=== PATIENT | female | born 1945 | race Caucasian/White ===

== ENCOUNTER → 2016-05-30 | Outpatient (CLI) | payer MEDICARE ==
[~2016-05-30] MED LIST: CALC-80 PO; CHOL10003 PO; LETR2.5T4 PO; MULT1CAP27 PO
--- NOTE | 2016-05-30 10:19 | Diagnostic Imaging Report ---
Examination: DEXA scan. Indication: Osteopenia Technique: Bone mineral density estimated based on dual energy radiography over the lumbar spine and femoral necks, was performed. Findings: The lumbar spine T-score is -0.9. This is 8% decreased density measurement compared to 2011 exam. T score over the left femoral neck is -1.5 and on the right side is -1.6. This is 5% decreased density measurement compared to 2011. Impression: Osteopenia.. Dictated by: Dictated on workstation # [id number]
== END ==
LOC: RAD 09:03
PROVIDERS: ATTEND Internal Medicine Hematology & Oncology
DX: M85.88 Other specified disorders of bone density and structure, other site (principal); Z51.81 Encounter for therapeutic drug level monitoring; Z79.811 Long term (current) use of aromatase inhibitors; Z90.722 Acquired absence of ovaries, bilateral
CPT/HCPCS: 77080

== ENCOUNTER → 2016-10-01 | Outpatient (CLI) | payer MEDICARE | LOC: FS 10:25 | PROVIDERS: ATTEND Internal Medicine Hematology & Oncology | DX: C50.511 Malignant neoplasm of lower-outer quadrant of right female breast (principal); C54.1 Malignant neoplasm of endometrium; Z17.0 Estrogen receptor positive status [ER+]; R74.8 Abnormal levels of other serum enzymes; Z90.11 Acquired absence of right breast and nipple; Z90.710 Acquired absence of both cervix and uterus; Z79.811 Long term (current) use of aromatase inhibitors; Z92.21 Personal history of antineoplastic chemotherapy; Z92.3 Personal history of irradiation | CPT/HCPCS: 99213 ==

== ENCOUNTER → 2017-04-08 | Outpatient (CLI) | payer MEDICARE ==
[2017-04-08 10:39] LABS: BASOPHILS % (AUTO) 1 % (0-10); EOSINOPHILS # (AUTO) 0.1 10^3/uL (0.0-0.3); EOSINOPHILS % (AUTO) 2 % (0-10); LYMPHOCYTES # (AUTO) 1.2 X 10^3 (1.0-4.0); LYMPHOCYTES % (AUTO) 33 % (12-44); MEAN CORPUSCULAR HEMOGLOBIN 31 PG (25-34); MEAN CORPUSCULAR HGB CONC 34 G/DL (32-36); MEAN CORPUSCULAR VOLUME 93 FL (80-99); MEAN PLATELET VOLUME 10.4 FL (7.4-10.4); MONOCYTES # (AUTO) 0.3 X 10^3 (0.0-1.0); MONOCYTES % (AUTO) 8 % (0-12); NEUTROPHILS # (AUTO) 2.1 X 10^3 (1.8-7.8); NEUTROPHILS % (AUTO) 57 % (42-75); PLATELET COUNT 148 10^3/uL (130-400); RED BLOOD COUNT 4.32 10^6/uL (4.35-5.85); RED CELL DISTRIBUTION WIDTH 12.5 % (10.0-14.5); WHITE BLOOD COUNT 3.7 10^3/uL (4.3-11.0)
[2017-04-08 10:56] LABS: ALANINE AMINOTRANSFERASE 21 U/L (0-55); ALBUMIN 3.8 GM/DL (3.2-4.5); ANION GAP 6 MMOL/L (5-14); ASPARTATE AMINO TRANSFERASE 17 U/L (5-34); BILIRUBIN,TOTAL 0.6 MG/DL (0.1-1.0); BLOOD UREA NITROGEN 27 MG/DL (7-18); BUN/CREATININE RATIO 37; CALCIUM 9.4 MG/DL (8.5-10.1); CARBON DIOXIDE 29 MMOL/L (21-32); CHLORIDE 108 MMOL/L (98-107); CREATININE SERUM 0.73 MG/DL (0.60-1.30); GFR ESTIMATED > 60; GLUCOSE 126 MG/DL (70-105); POTASSIUM 4.1 MMOL/L (3.6-5.0); SODIUM 143 MMOL/L (135-145); TOTAL PROTEIN 6.6 GM/DL (6.4-8.2)
== END ==
LOC: ONC 10:11
PROVIDERS: ATTEND Internal Medicine Hematology & Oncology
DX: C54.1 Malignant neoplasm of endometrium (principal)
CPT/HCPCS: 36415; 80053; 82306; 85025; 86304; 99213

== ENCOUNTER 2018-03-31 11:32 | Outpatient (RCR) | payer OTHER ==
[2018-03-31 11:37] LABS: BASOPHILS % (AUTO) 0 % (0-10); EOSINOPHILS # (AUTO) 0.1 10^3/uL (0.0-0.3); EOSINOPHILS % (AUTO) 2 % (0-10); HEMATOCRIT 41 % (35-52); HEMOGLOBIN 13.8 G/DL (11.5-16.0); LYMPHOCYTES # (AUTO) 1.6 X 10^3 (1.0-4.0); LYMPHOCYTES % (AUTO) 34 % (12-44); MEAN CORPUSCULAR HEMOGLOBIN 31 PG (25-34); MEAN CORPUSCULAR HGB CONC 34 G/DL (32-36); MEAN CORPUSCULAR VOLUME 92 FL (80-99); MEAN PLATELET VOLUME 10.2 FL (7.4-10.4); MONOCYTES # (AUTO) 0.5 X 10^3 (0.0-1.0); MONOCYTES % (AUTO) 11 % (0-12); NEUTROPHILS # (AUTO) 2.5 X 10^3 (1.8-7.8); NEUTROPHILS % (AUTO) 54 % (42-75); PLATELET COUNT 158 10^3/uL (130-400); RED CELL DISTRIBUTION WIDTH 12.8 % (10.0-14.5); WHITE BLOOD COUNT 4.7 10^3/uL (4.3-11.0)
[2018-03-31 11:58] LABS: ALANINE AMINOTRANSFERASE 22 U/L (0-55); ALBUMIN 4.2 GM/DL (3.2-4.5); ALKALINE PHOSPHATASE 91 U/L (40-136); BILIRUBIN,TOTAL 0.4 MG/DL (0.1-1.0); BUN/CREATININE RATIO 29; CARBON DIOXIDE 26 MMOL/L (21-32); CHLORIDE 106 MMOL/L (98-107); CREATININE SERUM 0.77 MG/DL (0.60-1.30); GFR ESTIMATED > 60; GLUCOSE 129 MG/DL (70-105); POTASSIUM 3.9 MMOL/L (3.6-5.0); SODIUM 142 MMOL/L (135-145); TOTAL PROTEIN 7.2 GM/DL (6.4-8.2)
== END 2018-06-29 | disposition home or self-care (01) ==
LOC: ONC 11:32
PROVIDERS: ATTEND Internal Medicine Hematology & Oncology
DX: C54.1 Malignant neoplasm of endometrium (principal); C50.511 Malignant neoplasm of lower-outer quadrant of right female breast; M85.88 Other specified disorders of bone density and structure, other site; R74.8 Abnormal levels of other serum enzymes; Z17.0 Estrogen receptor positive status [ER+]; Z90.11 Acquired absence of right breast and nipple; Z90.710 Acquired absence of both cervix and uterus; Z79.811 Long term (current) use of aromatase inhibitors; Z92.21 Personal history of antineoplastic chemotherapy; Z92.3 Personal history of irradiation
CPT/HCPCS: 36415; 80053; 85025; 99213

== ENCOUNTER 2018-10-08 10:34 | Outpatient (RCR) | payer OTHER ==
[2018-10-08 10:49] LABS: BASOPHILS % (AUTO) 0 % (0-10); EOSINOPHILS # (AUTO) 0.1 10^3/uL (0.0-0.3); EOSINOPHILS % (AUTO) 2 % (0-10); HEMATOCRIT 42 % (35-52); HEMOGLOBIN 14.3 G/DL (11.5-16.0); LYMPHOCYTES # (AUTO) 1.7 X 10^3 (1.0-4.0); LYMPHOCYTES % (AUTO) 37 % (12-44); MEAN CORPUSCULAR HEMOGLOBIN 31 PG (25-34); MEAN CORPUSCULAR HGB CONC 35 G/DL (32-36); MEAN CORPUSCULAR VOLUME 90 FL (80-99); MEAN PLATELET VOLUME 10.6 FL (7.4-10.4); MONOCYTES # (AUTO) 0.4 X 10^3 (0.0-1.0); MONOCYTES % (AUTO) 8 % (0-12); NEUTROPHILS # (AUTO) 2.4 X 10^3 (1.8-7.8); NEUTROPHILS % (AUTO) 53 % (42-75); PLATELET COUNT 153 10^3/uL (130-400); RED CELL DISTRIBUTION WIDTH 12.8 % (10.0-14.5); WHITE BLOOD COUNT 4.6 10^3/uL (4.3-11.0)
[2018-10-08 11:09] LABS: ALANINE AMINOTRANSFERASE 22 U/L (0-55); ALBUMIN 4.2 GM/DL (3.2-4.5); ALKALINE PHOSPHATASE 110 U/L (40-136); BILIRUBIN,TOTAL 0.4 MG/DL (0.1-1.0); BUN/CREATININE RATIO 29; CALCIUM 9.7 MG/DL (8.5-10.1); CARBON DIOXIDE 24 MMOL/L (21-32); CHLORIDE 108 MMOL/L (98-107); CREATININE SERUM 0.78 MG/DL (0.60-1.30); GFR ESTIMATED > 60; GLUCOSE 113 MG/DL (70-105); POTASSIUM 3.9 MMOL/L (3.6-5.0); SODIUM 141 MMOL/L (135-145); TOTAL PROTEIN 6.8 GM/DL (6.4-8.2)
== END 2019-01-06 | disposition home or self-care (01) ==
LOC: ONC 10:34
PROVIDERS: ATTEND Internal Medicine Hematology & Oncology
DX: C54.1 Malignant neoplasm of endometrium (principal); C50.511 Malignant neoplasm of lower-outer quadrant of right female breast; M85.88 Other specified disorders of bone density and structure, other site; R74.8 Abnormal levels of other serum enzymes; Z17.0 Estrogen receptor positive status [ER+]; Z90.11 Acquired absence of right breast and nipple; Z90.710 Acquired absence of both cervix and uterus; Z79.811 Long term (current) use of aromatase inhibitors; Z92.21 Personal history of antineoplastic chemotherapy; Z92.3 Personal history of irradiation
CPT/HCPCS: 36415; 80053; 82306; 85025; 86304; 99213

== ENCOUNTER → 2018-10-08 | Outpatient (CLI) | payer OTHER ==
--- NOTE | 2018-10-08 20:44 | Diagnostic Imaging Report ---
INDICATION: Routine screening. Comparison is made with prior mammograms from 10/07/2017 and 05/21/2016. Unilateral left 2-D and 3-D screening mammography was performed with a Computer Aided Detection (CAD) system. FINDINGS: Scattered fibroglandular densities are identified bilaterally. There are benign calcifications on the left. No mass or malignant-appearing microcalcifications are seen. Left axilla is unremarkable. IMPRESSION: No mammographic features suspicious for malignancy are identified. ACR BI-RADS Category 2: Benign findings. Result letter will be mailed to the patient. Note: At least 10% of breast cancer is not imaged by mammography. Dictated by: Dictated on workstation # [id number]
== END ==
LOC: RAD 11:39
PROVIDERS: ATTEND Nurse Practitioner Adult Health
DX: Z12.31 Encounter for screening mammogram for malignant neoplasm of breast (principal); Z51.81 Encounter for therapeutic drug level monitoring; C50.511 Malignant neoplasm of lower-outer quadrant of right female breast; M85.80 Other specified disorders of bone density and structure, unspecified site; Z79.811 Long term (current) use of aromatase inhibitors; Z78.0 Asymptomatic menopausal state

== ENCOUNTER → 2018-10-20 | Outpatient (CLI) | payer OTHER ==
--- NOTE | 2018-10-20 11:55 | Diagnostic Imaging Report ---
INDICATION: Screening for osteoporosis. COMPARISON: 05/30/2016 FINDING: The bone mineral density of the hips and spine was measured. The T score for the spine is -0.8. On the prior exam, the T score was -0.9. This value is within normal limits. The T score for the left hip is -1.4 and for the right hip -1.8. On the prior exam, the respective T scores were -1.5 and -1.6. These values still fall within the range of osteopenia. The T scores for the femoral necks is -1.6. The T scores for the femoral necks were not calculated on the prior exam. AP Spine L1-L4: [BMD (g/cm2): 1.104] [T-Score: -0.8] [Z-Score: 0.1] [BMD Previous: 1.104] [BMD % Change: 0.5] LT Hip Neck: [BMD (g/cm2): 0.816] [T-Score: -1.6] [Z-Score: -0.2] LT Hip Total: [BMD (g/cm2):0.836] [T-Score:-1.4] [Z-Score: -0.3] [BMD Previous: 0.819] [BMD % Change: 2.1] RT Hip Neck: [BMD (g/cm2):0.811] [T-Score:-1.6] [Z-Score:-0.3] RT Hip Total: [BMD (g/cm2):0.782] [T-score:-1.8] [Z-Score:-0.7] [BMD Previous:0.805] [BMD % Change:-2.9] *Indicates significant change from prior examination based on 95% confidence level. World Health Organization criteria for BMD interpretation classify patients as Normal (T-score at or above -1.0), Osteopenic (T-score between -1.0 and -2.5) or Osteoporotic (T-score at or below -2.5). LIMITATIONS AND MODIFICATION: None. FRACTURE RISK (FRAX SCORE): The ten year probability of (%): Major Osteoporotic Fracture: [14.5] Hip Fracture: [3.3] IMPRESSION: 1. When compared to the previous study, there does not appear to have been any significant change. There has been a slight increase in the bone mineral density of the spine and the left hip and a slight decrease in the bone mineral density of the right hip. The T score for the spine is still within normal limits and the T scores for the hips remain within the range of osteopenia. 2. There is also osteopenia of both femoral necks. 3. See below National Osteoporosis Foundation guidelines on when to potentially initiate pharmacologic therapy. Based on the National Osteoporosis Foundation Guidelines, pharmacologic treatment should be initiated in any of the following, unless clinical conditions suggest otherwise: * Any patient with prior fragility fracture of the hip or vertebrae. A spine fracture indicates 5X risk for subsequent spine fracture and 2X risk for subsequent hip fracture. * Osteoporosis (T-score <-2.5). * Postmenopausal women and men age 50 and older with low bone mass/osteopenia (T-score between -1.0 and -2.5) by DXA and 10-year major osteoporotic fracture greater than 20% or a 10-year probability of hip fracture greater than 3%. These fracture risks are supplied above in the FRAX score, if applicable. * Clinician judgement and/or patient preferences may indicate treatment for people with 10-year fracture probabilities above or below these levels. Dictated by: Dictated on workstation # [id number]
== END ==
LOC: RAD 09:52
PROVIDERS: ATTEND Nurse Practitioner Adult Health
DX: Z13.820 Encounter for screening for osteoporosis (principal); Z12.31 Encounter for screening mammogram for malignant neoplasm of breast; Z51.81 Encounter for therapeutic drug level monitoring; C50.919 Malignant neoplasm of unspecified site of unspecified female breast; M85.89 Other specified disorders of bone density and structure, multiple sites; Z78.0 Asymptomatic menopausal state; Z79.811 Long term (current) use of aromatase inhibitors
CPT/HCPCS: 77080

== ENCOUNTER 2019-04-19 13:11 | Outpatient (RCR) | payer OTHER ==
[2019-04-19 13:41] LABS: BASOPHILS % (AUTO) 1 % (0-10); EOSINOPHILS # (AUTO) 0.1 10^3/uL (0.0-0.3); EOSINOPHILS % (AUTO) 1 % (0-10); HEMATOCRIT 43 % (35-52); HEMOGLOBIN 14.2 G/DL (11.5-16.0); LYMPHOCYTES # (AUTO) 1.6 X 10^3 (1.0-4.0); LYMPHOCYTES % (AUTO) 37 % (12-44); MEAN CORPUSCULAR HEMOGLOBIN 30 PG (25-34); MEAN CORPUSCULAR HGB CONC 33 G/DL (32-36); MEAN CORPUSCULAR VOLUME 91 FL (80-99); MEAN PLATELET VOLUME 10.4 FL (7.4-10.4); MONOCYTES # (AUTO) 0.4 X 10^3 (0.0-1.0); MONOCYTES % (AUTO) 9 % (0-12); NEUTROPHILS # (AUTO) 2.3 X 10^3 (1.8-7.8); NEUTROPHILS % (AUTO) 53 % (42-75); PLATELET COUNT 152 10^3/uL (130-400); RED CELL DISTRIBUTION WIDTH 13.2 % (10.0-14.5); WHITE BLOOD COUNT 4.4 10^3/uL (4.3-11.0)
[2019-04-19 14:01] LABS: ALBUMIN 4.4 GM/DL (3.2-4.5); BILIRUBIN,TOTAL 0.5 MG/DL (0.1-1.0); CALCIUM 9.9 MG/DL (8.5-10.1); CREATININE SERUM 0.91 MG/DL (0.60-1.30); POTASSIUM 3.8 MMOL/L (3.6-5.0); TOTAL PROTEIN 7.1 GM/DL (6.4-8.2)
== END 2019-07-18 | disposition home or self-care (01) ==
LOC: ONC 13:11
PROVIDERS: ATTEND Internal Medicine Hematology & Oncology
DX: C54.1 Malignant neoplasm of endometrium (principal); C50.511 Malignant neoplasm of lower-outer quadrant of right female breast; M85.88 Other specified disorders of bone density and structure, other site; R74.8 Abnormal levels of other serum enzymes; Z17.0 Estrogen receptor positive status [ER+]; Z90.11 Acquired absence of right breast and nipple; Z90.710 Acquired absence of both cervix and uterus; Z79.811 Long term (current) use of aromatase inhibitors; Z92.21 Personal history of antineoplastic chemotherapy; Z92.3 Personal history of irradiation
CPT/HCPCS: 80053; 85025; 86304; 99213

== ENCOUNTER 2019-06-18 17:16 | Emergency (ER) | payer MEDICARE, OTHER ==
[~2019-06-18] VITALS: Ht 172.7 cm; Wt 94.4 kg
--- NOTE | 2019-06-18 17:32 | ED Back Pain ---
General Stated Complaint: BACK PAIN Source of Information: Patient Exam Limitations: No Limitations (FLAKO BAINS DO) History of Present Illness Date Seen by Provider: Jun 18, 2019 Time Seen by Provider: 17:27 Initial Comments 73-year-old female presents with right lower back/flank pain. She reports the pain radiates across her abdomen and into her groin. She also reports that she is nauseated, feels dizzy. That she's been having issues with her "kidneys" for about 3 weeks having difficulty urinating and wanted May shower kidney stone at that time. She reports she was walking to her neighbors when the symptoms started today. She also has a cough that she reports his been going on for about 2 weeks. She does not report of any fever. She does not have any diarrhea. She denies any shortness of breath (FLAKO BAINS DO) Allergies and Home Medications Allergies Coded Allergies: No Known Drug Allergies (Unverified , 08/02/10) Home Medications Calcium Carbonate/Vitamin D3 1 Each Tablet, 1 EACH PO BID, (Reported) Cholecalciferol 1,000 Unit Tablet, 1,000 UNIT PO DAILY, (Reported) Letrozole 2.5 Mg Tablet, 1 EACH PO HS, (Reported) Multivitamins 1 Each Capsule, 1 EACH PO DAILY, (Reported) Patient Home Medication List Home Medication List Reviewed: Yes (FLAKO BAINS DO) Review of Systems Constitutional: No chills; dizziness; No fever EENTM: no symptoms reported Respiratory: cough Cardiovascular: No chest pain Gastrointestinal: abdominal pain, nausea Genitourinary: see HPI Musculoskeletal: see HPI, back pain Skin: see HPI Psychiatric/Neurological: See HPI (FLAKO BAINS DO) Past Fbrbtyh-Qlxpsy-Nwylfv Hx Past Med/Social Hx: Reviewed Nursing Past Med/Soc Hx (FLAKO BAINS DO) Patient Social History Recent Foreign Travel: No Contact w/Someone Who Travel: No (FLAKO BAINS DO) Immunizations Up To Date Date of Influenza Vaccine: Mar 28, 2011 (FLAKO BAINS DO) Past Medical History Reproductive Disorders: No (FLAKO BAINS DO) Physical Exam Vital Signs Vital Signs - First Documented 06/18/19 17:20 Temp 36.8 Pulse 100 Resp 18 B/P (MAP) 175/92 (119) Pulse Ox 98 O2 Delivery Room Air (IGNACIO STOUT JR, MD) Vital Signs Capillary Refill : (BAINS,FLAKO L DO) Height, Weight, BMI Height: '" Weight: lbs. oz. 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6-5.0 MMOL/L Chloride Level 105 98-107 MMOL/L Carbon Dioxide Level 26 21-32 MMOL/L Anion Gap 12 5-14 MMOL/L Blood Urea Nitrogen 26 H 7-18 MG/DL Creatinine 0.74 0.60-1.30 MG/DL Estimat Glomerular Filtration Rate > 60 BUN/Creatinine Ratio 35 Glucose Level 128 H 70-105 MG/DL Calcium Level 10.0 8.5-10.1 MG/DL Corrected Calcium 9.7 8.5-10.1 MG/DL Total Bilirubin 0.4 0.1-1.0 MG/DL Aspartate Amino Transf (AST/SGOT) 33 5-34 U/L Alanine Aminotransferase (ALT/SGPT) 42 0-55 U/L Alkaline Phosphatase 111 40-136 U/L Total Protein 7.0 6.4-8.2 GM/DL Albumin 4.4 3.2-4.5 GM/DL Urine Color BROWN H Urine Clarity CLOUDY Urine pH 5.0 5-9 Urine Specific [place] >1.030 1.016-1.022 Urine Protein 1+ H NEGATIVE Urine Glucose (UA) NEGATIVE NEGATIVE Urine Ketones NEGATIVE NEGATIVE Urine Nitrite NEGATIVE NEGATIVE Urine Bilirubin NEGATIVE NEGATIVE Urine Urobilinogen 0.2 < = 1.0 MG/DL Urine Leukocyte Esterase TRACE H NEGATIVE Urine RBC (Auto) 3+ H NEGATIVE Urine RBC >100 H /HPF Urine WBC 2-5 /HPF Urine Crystals NONE /LPF Urine Bacteria TRACE /HPF Urine Casts NONE /LPF Urine Mucus NEGATIVE /LPF Urine Culture Indicated NO (IGNACIO STOUT JR, MD) My Orders Orders - IGNACIO STOUT JR, MD Ns Iv 1000 Ml (Sodium Chloride 0.9%) (06/18/19 18:45) Ns Iv 1000 Ml (Sodium Chloride 0.9%) (06/18/19 18:33) (IGNACIO STOUT JR, MD) Medications Given in ED Current Medications Medications Dose Ordered Sig/Pablo Route Start Time Stop Time Status Last Admin Dose Admin Iohexol 100 ml ONCE ONCE IV 06/18/19 18:15 06/18/19 18:16 DC 06/18/19 18:19 100 ML Sodium Chloride 10 ml NEEDED PRN IV 06/18/19 18:15 06/18/19 18:19 10 ML Sodium Chloride 100 ml ONCE ONCE IV 06/18/19 18:15 06/18/19 18:16 DC 06/18/19 18:19 80 ML (IGNACIO STOUT JR, MD) Vital Signs/I&O 06/18/19 17:20 Temp 36.8 Pulse 100 Resp 18 B/P (MAP) 175/92 (119) Pulse Ox 98 O2 Delivery Room Air (IGNACIO STOUT JR, MD) Progress Progress Note : Time: 20:12 Progress Note Patient is relatively pain-free after a liter of IV fluids we'll go ahead and then send a strainer home with her watch her over the weekend will have her follow-up with her PCP on Friday to recheck urine and save any stone that she might collect. Return if any problems. (IGNACIO STOUT JR, MD) Departure Impression Primary Impression: Kidney stone Disposition: HOME, SELF-CARE Condition: Stable Departure-Patient Inst. Referrals: ABDULAZIZ TESFAYE MD (PCP/Family) Primary Care Physician Patient Instructions: Kidney Stones in Adults FLAKO BAINS DO Jun 18, 2019 17:32 IGNACIO STOUT JR, MD Jun 18, 2019 20:14
[2019-06-18 17:49] LABS: HEMOGLOBIN 13.8 G/DL (11.5-16.0); MEAN PLATELET VOLUME 10.3 FL (7.4-10.4); RED CELL DISTRIBUTION WIDTH 12.9 % (10.0-14.5)
[2019-06-18 18:07] LABS: ALANINE AMINOTRANSFERASE 42 U/L (0-55); ALBUMIN 4.4 GM/DL (3.2-4.5); ALKALINE PHOSPHATASE 111 U/L (40-136); BILIRUBIN,TOTAL 0.4 MG/DL (0.1-1.0); BUN/CREATININE RATIO 35; CARBON DIOXIDE 26 MMOL/L (21-32); CHLORIDE 105 MMOL/L (98-107); CREATININE SERUM 0.74 MG/DL (0.60-1.30); GFR ESTIMATED > 60; GLUCOSE 128 MG/DL (70-105); SODIUM 143 MMOL/L (135-145)
[2019-06-18] MEDS ORDERED: NS 100 ML (IVPB) BAG IV ONE (18:15)
[2019-06-18] MEDS ORDERED: IOHEXOL 350 MG/ML 100 ML (OMNIPAQUE 350) VIAL IV ONE (18:15)
[2019-06-18] MEDS ORDERED: CATHETER FLUSH 10 ML SYR IV PRN (18:15)
[2019-06-18] MEDS ORDERED: HOLD METFORMIN - RECEIVED CONTRAST 20 ML VIAL IV SCH (18:15)
[2019-06-18] MEDS ORDERED: NS IV 1000 ML 1,000 ML ONE (18:33)
--- NOTE | 2019-06-18 18:39 | Diagnostic Imaging Report ---
PROCEDURE: CT abdomen and pelvis with and without contrast. TECHNIQUE: Precontrast acquisitions were acquired through the abdomen and pelvis. Multiple contiguous axial images were obtained through the abdomen and pelvis after the administration of intravenous contrast. Auto Exposure Controls were utilized during the CT exam to meet ALARA standards for radiation dose reduction. INDICATION: Low back and groin pain with nausea and previously diagnosed ovarian and breast cancer. COMPARISON: Comparison is made to examination of 06/24/2013. FINDINGS: Similar to previous study, the right breast has been surgically removed. There is low density throughout the liver indicating steatosis. There is no evidence of gallbladder, pancreatic, adrenal gland, or splenic abnormality. Left kidney is also unremarkable in appearance apart from tiny nonobstructing calculus in the mid portion posteriorly. There is mild right hydronephrosis with an approximately 0.6 cm calculus in the proximal right ureter. No free fluid is seen within the abdomen or pelvis. There is no evidence of organized fluid collection. Small amount of gas is seen within the urinary bladder. This could be due to instrumentation, although clinical correlation is recommended. IMPRESSION: At least partially obstructing 0.6 cm calculus in the proximal right ureter with mild right hydronephrosis. Gas in the lumen of the bladder could be related to instrumentation or cystitis, and clinical correlation would be of value. Otherwise, no acute abnormality is detected. Dictated by: Dictated on workstation # [id number]
[2019-06-18 18:41] LABS: BILIRUBIN,URINE NEGATIVE (NEGATIVE); CLARITY,URINE CLOUDY; COLOR,URINE BROWN; GLUCOSE, URINE (UA) NEGATIVE (NEGATIVE); KETONES,URINE NEGATIVE (NEGATIVE); LEUKOCYTE ESTERASE ,URINE TRACE (NEGATIVE); NITRITE,URINE NEGATIVE (NEGATIVE); PROTEIN,URINE 1+ (NEGATIVE)
[2019-06-18 18:42] LABS: BACTERIA,URINE TRACE /HPF; RBC,URINE >100 /HPF
[2019-06-18] MEDS ORDERED: NS IV 1000 ML 1,000 ML IV SCH (18:45)
[2019-06-18 20:20] VITALS: BP 151/80
== END 2019-06-18 20:20 | disposition home or self-care (01) ==
LOC: EDUNIT# 17:16 → ER FS 17:17
DX: N13.2 Hydronephrosis with renal and ureteral calculous obstruction (principal)
CPT/HCPCS: 36415; 74178; 80053; 81000; 85027

== ENCOUNTER 2021-04-30 11:34 | Emergency (ER) | payer MEDICARE ==
[~2021-04-30] VITALS: Ht 172 cm; Wt 95.0 kg
[2021-04-30 11:57] VITALS: BP 175/94
[2021-04-30] MEDS ORDERED: ACETAMINOPHEN 500 MG TAB (TYLENOL) PO ONE (12:00)
--- NOTE | 2021-04-30 12:06 | ED Lower Extremity ---
General Chief Complaint: Lower Extremity Stated Complaint: FALL; RT HIP/LEG INJ Source: patient Exam Limitations: no limitations History of Present Illness Date Seen by Provider: Apr 30, 2021 Time Seen by Provider: 11:36 Initial Comments 75-year-old female with past medical history of breast cancer now in remission and arthritis coming in due to right leg pain. She was outside and tripped around 930 this morning landing on her right side and since then has had right posterior thigh pain that is constant, sharp, moderate, worse with walking. She has been able to walk. She did not hit her head or have loss of consciousness. She denies any neck or back pain. Has not taken any medications today including nothing for pain. Is otherwise denying any other acute complaints. Allergies and Home Medications Allergies Coded Allergies: No Known Drug Allergies (Unverified , 08/02/10) Patient Home Medication List Home Medication List Reviewed: Yes Calcium Carbonate/Vitamin D3 (Calcium 600 + D Caplet) 1 Each Tablet, 1 EACH PO BID, (Reported) Entered as Reported by: OSWALDO RUGGIERO on 09/19/11 1052 Cholecalciferol (Vitamin D) 1,000 Unit Tablet, 1,000 UNIT PO DAILY, (Reported) Entered as Reported by: OSWALDO RUGGIERO on 09/19/11 1052 Letrozole (Femara) 2.5 Mg Tablet, 1 EACH PO HS, (Reported) Entered as Reported by: OSWALDO RUGGIERO on 09/19/11 1052 Multivitamins (Multivitamins) 1 Each Capsule, 1 EACH PO DAILY, (Reported) Entered as Reported by: OSWALDO RUGGIERO on 09/19/11 1052 Review of Systems Constitutional: No chills EENTM: No blurred vision Respiratory: No cough Cardiovascular: No chest pain Gastrointestinal: No abdominal pain Genitourinary: no symptoms reported Musculoskeletal: joint pain Skin: no symptoms reported Psychiatric/Neurological: No Symptoms Reported All Other Systems Reviewed Negative Unless Noted: Yes Past Fgwmeux-Rujzrk-Tlxjci Hx Patient Social History Tobacco Use?: No Use of E-Cig and/or Vaping dev: No Substance use?: No Alcohol Use?: No Pt feels they are or have been: No Seasonal Allergies Seasonal Allergies: No Past Medical History Surgeries: Yes (R mastectomy) Breast, Hysterectomy Respiratory: No Cardiac: No Neurological: No Reproductive Disorders: No 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 oz. kg; 31.00 BMI Method: General Appearance: WD/WN, no apparent distress HEENT: PERRL/EOMI, normal ENT inspection, pharynx normal Neck: non-tender, full range of motion, supple, normal inspection Cardiovascular: regular rate, rhythm, no edema, no murmur Respiratory: chest non-tender, lungs clear, normal breath sounds, no res piratory distress, no accessory muscle use Gastrointestinal: normal bowel sounds, non tender, soft; No distended, No guarding, No rebound Hips: bilateral hip non-tender, bilateral hip normal inspection, bilateral hip normal range of motion, bilateral hip no evidence of injury Legs: left leg non-tender; bilateral leg normal inspection, bilateral leg normal range of motion, bilateral leg no evidence of injury; right leg bone tenderness, right leg soft tissue tenderness Knees: bilateral knee non-tender, bilateral knee normal inspection, bilateral knee normal range of motion, bilateral knee no evidence of injury Ankles: bilateral ankle non-tender, bilateral ankle normal inspection, bilateral ankle normal range of motion, bilateral ankle no evidence of injury Feet: bilateral foot non-tender, bilateral foot normal inspection, bilateral foot normal range of motion, bilateral foot no evidence of injury Neurologic/Tendon: normal sensation, normal motor functions, normal tendon functions 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 as tested, no motor/sensory deficits, alert, normal mood/affect, oriented x 3 Skin: normal color, warm/dry Lymphatic: no adenopathy Progress/Results/Core Measures Results/Orders My Orders Orders - ROSMERY GASTELUM MD Femur 2 View Right (04/30/21 11:59) Pelvis (Ap) (04/30/21 11:59) Acetaminophen Tablet (Tylenol Tablet) (04/30/21 12:00) Medications Given in ED Current Medications Medications Dose Ordered Sig/Pablo Route Start Time Stop Time Status Last Admin Dose Admin Acetaminophen 1,000 mg ONCE ONCE PO 04/30/21 12:00 04/30/21 12:01 DC 04/30/21 12:08 1,000 MG Vital Signs/I&O 04/30/21 11:57 Temp 36.5 Pulse 92 Resp 16 B/P (MAP) 175/94 (121) Pulse Ox 97 O2 Delivery Room Air Progress Progress Note : Progress Note 75-year-old female with above history coming in due to right thigh pain. ABCs were intact and vitals are stable on presentation. Physical exam with some soft tissue tenderness along her right posterior thigh without any deformity. She is able to ambulate and able to move her leg against gravity. Given Tylenol for pain control. We will get an x-ray of her pelvis as well as right femur. X-rays on my interpretation negative for any fracture or dislocation. Likely just soft tissue contusion. I believe the patient is stable for discharge with outpatient follow-up. She was sent home with strict return precautions. Diagnostic Imaging Diagonstic Imaging: Xray (pelvis and femur) [facility] [place] [place] NAME: KINJAL [facility] REC#: [id number] PT STATUS: REG ER : 1945 PHYSICIAN: ROSMERY GASTELUM MD ADMIT DATE: 04/30/21/ER FS Draft Date of Exam:04/30/21 PELVIS (AP) INDICATION: Right hip injury from a fall. AP view pelvis shows no fracture or dislocation. Soft tissue planes appear normal. IMPRESSION: Negative pelvis Dictated on workstation # [id number] Dict: 04/30/21 1226 Trans: 04/30/21 1227 [facility] [id number] Interpreted by: ROCIO BUCIO MD Electronically signed by: [facility] [place] [place] NAME: KINJAL [facility]CH[facility] REC#: [id number] PT STATUS: REG ER : 1945 PHYSICIAN: ROSMERY GASTELUM MD ADMIT DATE: 12/20/21/ER FS Draft Date of Exam:04/30/21 FEMUR 2 VIEW RIGHT INDICATION: Fall. Right hip and thigh pain COMPARISON: None. FINDINGS: Multiple radiographic views of the right femur were obtained and show no fractures, dislocations, or other acute bony abnormalities. Joint spaces are well maintained throughout. The soft tissues appear unremarkable. No radiopaque foreign bodies are identified. IMPRESSION: Unremarkable radiographic exam of the right femur. Dictated on workstation # [id number] Dict: 04/30/21 1227 Trans: 04/30/21 1233 CV [id number] Interpreted by: JOSE RODRÍGUEZ MD Electronically signed by: Departure Impression Primary Impression: Thigh contusion Qualified Codes: S70.11XA - Contusion of right thigh, initial encounter Disposition: 01 HOME, SELF-CARE Condition: Stable Departure-Patient Inst. Decision time for Depature: 12:40 Referrals: GAL DUGGAN APRN (PCP) Primary Care Physician [facility] (Family) Primary Care Physician Patient Instructions: Contusion (DC) Add. Discharge Instructions: You were seen in the emergency department after you fell and landed on your [facility] t side. Fortunately your x-rays look good and do not have anything broken. You do have a likely deep bruise to your bone called a contusion. These often can hurt just as bad as a fracture. Take 400 mg of ibuprofen every 6-8 hours as needed for pain as well as 1000 g of Tylenol every 6 hours. You can also ice the area. Please follow-up with an orthopedic physician in the next couple weeks if you continue to have pain. ROSMERY GASTELUM MD Apr 30, 2021 12:06
--- NOTE | 2021-04-30 12:27 | Diagnostic Imaging Report ---
INDICATION: Right hip injury from a fall. AP view pelvis shows no fracture or dislocation. Soft tissue planes appear normal. IMPRESSION: Negative pelvis Dictated by: Dictated on workstation # [id number]
--- NOTE | 2021-04-30 12:33 | Diagnostic Imaging Report ---
INDICATION: Fall. Right hip and thigh pain COMPARISON: None. FINDINGS: Multiple radiographic views of the right femur were obtained and show no fractures, dislocations, or other acute bony abnormalities. Joint spaces are well maintained throughout. The soft tissues appear unremarkable. No radiopaque foreign bodies are identified. IMPRESSION: Unremarkable radiographic exam of the right femur. Dictated by: Dictated on workstation # [id number]
== END 2021-04-30 12:50 | disposition home or self-care (01) ==
LOC: EDUNIT# 11:34 → ER FS 11:36
DX: S70.11XA Contusion of right thigh, initial encounter (principal); W01.0XXA Fall on same level from slipping, tripping and stumbling without subsequent striking against object, initial encounter
CPT/HCPCS: 72170; 73552

== ENCOUNTER 2021-06-16 12:21 | Emergency (ER) | payer MEDICARE ==
[~2021-06-16] VITALS: Ht 172 cm; Wt 90.0 kg
[2021-06-16 12:35] VITALS: BP 106/81
--- NOTE | 2021-06-16 12:35 | ED Upper Extremity ---
General Chief Complaint: Upper Extremity Stated Complaint: FALL/LEFT HAND INJURY Source: patient Exam Limitations: no limitations History of Present Illness Date Seen by Provider: Jun 16, 2021 Time Seen by Provider: 12:25 Initial Comments 75-year-old female with past medical history of hypertension coming in after a fall. She tripped over a phone cord yesterday, landed on a sofa on her left hand. Says she noticed some bruising and swelling to her left hand last night so wanted to be seen today. Currently when she is not moving she has no pain at all, but there is some movements where she has severe pain that is sharp and on the dorsal aspect of her left hand. Denies hitting her head or passing out. Does not take any blood thinners. Denies any neck or back pain. Has been ambulatory since the accident. Denies any weakness or numbness, or any other symptoms associated with this. Took ibuprofen this morning which did help. Allergies and Home Medications Allergies Coded Allergies: No Known Drug Allergies (Unverified , 08/02/10) Patient Home Medication List Home Medication List Reviewed: Yes Calcium Carbonate/Vitamin D3 (Calcium 600 + D Caplet) 1 Each Tablet, 1 EACH PO BID, (Reported) Entered as Reported by: OSWALDO RUGGIERO on 09/19/11 105 Cholecalciferol (Vitamin D) 1,000 Unit Tablet, 1,000 UNIT PO DAILY, (Reported) Entered as Reported by: OSWALDO RUGGIERO on 09/19/11 105 Letrozole (Femara) 2.5 Mg Tablet, 1 EACH PO HS, (Reported) Entered as Reported by: OSWALDO RUGGIERO on 09/19/11 105 Multivitamins (Multivitamins) 1 Each Capsule, 1 EACH PO DAILY, (Reported) Entered as Reported by: OSWALDO RUGGIERO on 09/19/11 105 Review of Systems Constitutional: No chills, No fever EENTM: No blurred vision Respiratory: No cough, No short of breath Cardiovascular: No chest pain Gastrointestinal: No abdominal pain, No nausea, No vomiting Genitourinary: no symptoms reported Musculoskeletal: joint pain Skin: no symptoms reported Psychiatric/Neurological: No Symptoms Reported All Other Systems Reviewed Negative Unless Noted: Yes Past Viimwyj-Nhtxzr-Ocmagf Hx Patient Social History Tobacco Use?: No Seasonal Allergies Seasonal Allergies: No Past Medical History Surgeries: Yes (R mastectomy) Breast, Hysterectomy Respiratory: No Cardiac: No Neurological: No Reproductive Disorders: No 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 oz. kg; 32.00 BMI Method: General Appearance: WD/WN, no apparent distress HEENT: PERRL/EOMI, normal ENT inspection, pharynx normal Neck: non-tender, full range of motion, supple Cardiovascular: regular rate, rhythm, no edema, no murmur, other (2+ distal pulses) Respiratory: chest non-tender, lungs clear, no respiratory distress Gastrointestinal: normal bowel sounds, non tender, soft; No distended, No guarding, No rebound Back: normal inspection, no CVA tenderness, no vertebral tenderness Shoulder: normal inspection, non-tender, no evidence of injury, normal ROM Elbow/Forearm: normal inspection, non-tender, no evidence of injury, normal ROM Wrist: Yes normal inspection, Yes non-tender, Yes no evidence of injury, Yes normal ROM Hand: normal ROM, bone tenderness (Tender along the proximal aspect of the fo urth metacarpal of the left hand more so on the dorsal aspect, bruising on the dorsal aspect as well with some swelling), ecchymosis Neurologic/Tendon: normal sensation, normal motor functions, normal tendon functions Neurologic/Psychiatric: no motor/sensory deficits, alert, normal mood/affect, oriented x 3 Skin: normal color, warm/dry Lymphatic: no adenopathy Procedures/Interventions Splinting and Joint Reduction : Splints: Colles Wrist (Marin wrap used around the prefabricated wrist splint with neurovascular exam normal before and after placing the splint) Progress/Results/Core Measures Results/Orders My Orders Orders - ROSMERY GASTELUM MD Hand 3 View Left (06/16/21 12:31) Vital Signs/I&O 06/16/21 12:35 Temp 36.2 Pulse 110 Resp 18 B/P (MAP) 106/81 (89) Pulse Ox 96 O2 Delivery Room Air Progress Progress Note : Progress Note 75-year-old female with above history coming in due to left hand pain after mechanical fall tripping on a cord. ABCs were intact and vitals were stable on presentation. Physical exam with some swelling to the dorsal aspect of her left hand and tenderness along that side as well. She has no scaphoid tenderness on my exam. Normal neurovascular exam as well. X-ray ordered and interpreted by me of her left hand showing a left distal radius fracture that is a Colles' type. Mildly displaced. I placed her in a prefabricated splint and will have her follow-up with the orthopedist in [facility]. Offered her Tylenol for pain control, but she says at rest she is not having any pain so did not want any medications at this time. Diagnostic Imaging Diagonstic Imaging: Xray Comments [facility], [place] NAME: KINJAL ECHAVARRIA Mona [facility] REC#: [id number] PT STATUS: REG ER : 1945 PHYSICIAN: ROSMERY GASTELUM MD ADMIT DATE: 06/16/21/ER FS Draft Date of Exam:06/16/21 HAND 3 VIEW LEFT EXAMINATION: Left hand radiographs, 3 views. COMPARISON: None. HISTORY: 75-year-old female, fall. Left wrist and hand pain. FINDINGS: There is a mildly displaced distal radial metaphyseal fracture without identified intra-articular fracture extension. 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 There is no additional identified acute fracture. There is no identified radiopaque foreign body. IMPRESSION: 1. Acute mild displaced distal radial metaphyseal fracture without identified intra-articular fracture extension. 2. No additional identified acute fracture at the level of the left hand. Dictated on workstation # [id number] Dict: 06/16/21 1308 Trans: 06/16/21 1312 [facility] [id number] Interpreted by: PATRICK ORTIZ MD Electronically signed by: Departure Impression Primary Impression: Fracture of radius Qualified Codes: S52.532A - Colles' fracture of left radius, initial encounter for closed fracture Disposition: 01 HOME, SELF-CARE Condition: Stable Departure-Patient Inst. Decision time for Depature: 13:14 Referrals: GAL DUGGAN APRN (PCP) Primary Care Physician [facility] (Family) Primary Care Physician DENIS MCCORMACK Patient Instructions: Radius Fracture (DC) Add. Discharge Instructions: The end of your radius bone in your wrist is broken. You do need to follow-up with an orthopedic doctor. Sincere Mccormack is a nurse practitioner in town you can follow-up with, and whose number is in this paperwork. I recommend Tylenol 1000 mg every 6-8 hours for pain, if you have pain on top of that you can take the Advil you are talking about. You can also ice it. Keep it immobilized in the splint until you follow-up with Sincere Mccormack. ROSMERY GASTELUM MD Jun 16, 2021 12:35
--- NOTE | 2021-06-16 13:12 | Diagnostic Imaging Report ---
EXAMINATION: Left hand radiographs, 3 views. COMPARISON: None. HISTORY: 75-year-old female, fall. Left wrist and hand pain. FINDINGS: There is a mildly displaced distal radial metaphyseal fracture without identified intra-articular fracture extension. 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 There is no additional identified acute fracture. There is no identified radiopaque foreign body. IMPRESSION: 1. Acute mild displaced distal radial metaphyseal fracture without identified intra-articular fracture extension. 2. No additional identified acute fracture at the level of the left hand. Dictated by: Dictated on workstation # [id number]
== END 2021-06-16 13:20 | disposition home or self-care (01) ==
LOC: EDUNIT# 12:21 → ER FS 12:22
DX: S52.302A Unspecified fracture of shaft of left radius, initial encounter for closed fracture (principal); W01.0XXA Fall on same level from slipping, tripping and stumbling without subsequent striking against object, initial encounter
CPT/HCPCS: 29125; 73130

== ENCOUNTER 2021-06-25 12:01 | Emergency (ER) | payer MEDICARE ==
[~2021-06-25] VITALS: Ht 172.7 cm; Wt 109.0 kg
[2021-06-25 12:46] LABS: BASOPHILS % (AUTO) 1 % (0-10); EOSINOPHILS # (AUTO) 0.1 10^3/uL (0.0-0.3); EOSINOPHILS % (AUTO) 2 % (0-10); HEMATOCRIT 41 % (35-52); HEMOGLOBIN 13.2 g/dL (11.5-16.0); LYMPHOCYTES # (AUTO) 1.5 10^3/uL (1.0-4.0); LYMPHOCYTES % (AUTO) 28 % (12-44); MEAN CORPUSCULAR HEMOGLOBIN 30 pg (25-34); MEAN CORPUSCULAR HGB CONC 32 g/dL (32-36); MEAN CORPUSCULAR VOLUME 94 fL (80-99); MONOCYTES # (AUTO) 0.4 10^3/uL (0.0-1.0); MONOCYTES % (AUTO) 7 % (0-12); NEUTROPHILS # (AUTO) 3.3 10^3/uL (1.8-7.8); NEUTROPHILS % (AUTO) 62 % (42-75); PLATELET COUNT 191 10^3/uL (130-400); WHITE BLOOD COUNT 5.4 10^3/uL (4.3-11.0)
[2021-06-25 12:51] LABS: INR 0.9 (0.8-1.4); PROTHROMBIN TIME PATIENT 12.7 SEC (12.2-14.7)
[2021-06-25 13:00] LABS: FIBRIN DEGRADATION PRODUCTS 1.95 UG/ML (0.00-0.49)
[2021-06-25 13:03] LABS: ALANINE AMINOTRANSFERASE 22 U/L (0-55); ALKALINE PHOSPHATASE 125 U/L (40-136); BILIRUBIN,TOTAL 0.4 MG/DL (0.1-1.0); BUN/CREATININE RATIO 22; CALCIUM 9.9 MG/DL (8.5-10.1); CARBON DIOXIDE 26 MMOL/L (21-32); CHLORIDE 105 MMOL/L (98-107); CREATININE SERUM 1.12 MG/DL (0.60-1.30); GFR ESTIMATED 51; GLUCOSE 111 MG/DL (70-105); POTASSIUM 4.3 MMOL/L (3.6-5.0); SODIUM 141 MMOL/L (135-145); TOTAL PROTEIN 7.8 GM/DL (6.4-8.2)
--- NOTE | 2021-06-25 13:03 | Diagnostic Imaging Report ---
CLINICAL INDICATION: Non-activation stroke. Right hand numbness. EXAM: Axial CT scan of the brain without IV contrast with coronal and sagittal reformatted images. Auto Exposure Controls were utilized during the CT exam to meet ALARA standards for radiation dose reduction. COMPARISON: None FINDINGS: There is no evidence of acute cerebral infarct, intracranial hemorrhage, or gross mass effect. The brain parenchymal volume appears appropriate for patient's age. There are multiple focal and patchy areas of low-attenuation white matter changes involving the white matter of both cerebral hemispheres and bilateral basal ganglia regions. There is normal andres-white matter distinction. There is no significant midline shift or herniation. There is no evidence of hydrocephalus. The basal cisterns are unremarkable. The skull, extracranial soft tissue, and orbits are unremarkable. There is mild mucosal thickening involving both maxillary sinuses and frontal sinus. There is wdwm-ib-vhcobpkq mucosal thickening involving the ethmoid sinus. Temporal bones show no significant abnormality. IMPRESSION: 1: There is no dense vessel sign seen. There is no definite CT evidence of interval acute cerebral infarction, intracranial hemorrhage, or mass seen. The diffuse patchy low attenuation changes throughout the brain parenchyma may possibly obscure more subtle findings. If there is clinical concern for acute cerebral infarction, MRI of the brain would better evaluate. 2: There are multiple focal and patchy areas of low-attenuation white matter changes involving both cerebral hemispheres and bilateral basal ganglia regions, which may be related to chronic ischemic changes/small infarcts. Results of this report were discussed with Dr. Paige Ramos via the telephone on 06/25/2021 at 1258 hours. Dictated by: Dictated on workstation # [id number]
[2021-06-25 13:04] LABS: ALBUMIN 4.1 GM/DL (3.2-4.5)
--- NOTE | 2021-06-25 13:05 | Diagnostic Imaging Report ---
HISTORY: Right upper extremity weakness, right hand numbness. TECHNIQUE: Frontal view of the chest. COMPARISON: None. FINDINGS: Lung volumes are normal. No consolidation is seen. There is no pleural effusion or pneumothorax. Surgical clips are seen in the right axilla. The cardiac silhouette is normal in size. IMPRESSION: No acute pulmonary abnormality. Dictated by: Dictated on workstation # [id number]
[2021-06-25 13:34] LABS: BILIRUBIN,URINE NEGATIVE (NEGATIVE); CLARITY,URINE CLOUDY; COLOR,URINE YELLOW; GLUCOSE, URINE (UA) NEGATIVE (NEGATIVE); KETONES,URINE NEGATIVE (NEGATIVE); LEUKOCYTE ESTERASE ,URINE 3+ (NEGATIVE); NITRITE,URINE NEGATIVE (NEGATIVE); PROTEIN,URINE NEGATIVE (NEGATIVE)
--- NOTE | 2021-06-25 13:38 | ED Abdominal Pain ---
General Chief Complaint: Neuro-Stroke Like Symptoms Stated Complaint: STROKE SYMPTOMS Nursing Triage Note: PT TO ROOM [facility] WITH C/O RIGHT ARM WEAKNESS THIS MORNING. PT REPORTS HER RIGHT ARM FROM ELBOW TO HAND WAS WEAK AND SHE COULD NOT USE IT. PT STATES THIS LASTED APPROX 10MIN AND THEN WENT AWAY ON OWN. PT HAS NO COMPLAINTS AT THIS TIME. History of Present Illness Date Seen by Provider: Jun 25, 2021 Time Seen by Provider: 12:58 Initial Comments 75 yr F with PMH of ... is here with c/o right upper extremity weakness which occurred today and lasted for 10 minutes, and pt describes that she had no control over her extremity and could not direct her hand to type something. Eventually it resolved.Denies previous known stroke or cardiac issues, headaches, blurry vision, izziness, unilateral paralysis. Allergies and Home Medications Allergies Coded Allergies: No Known Drug Allergies (Unverified , 08/02/10) Patient Home Medication List Home Medication List Reviewed: Yes Calcium Carbonate/Vitamin D3 (Calcium 600 + D Caplet) 1 Each Tablet, 1 EACH PO BID, (Reported) Entered as Reported by: OSWALDO RUGGIERO on 09/19/11 1052 Cholecalciferol (Vitamin D) 1,000 Unit Tablet, 1,000 UNIT PO DAILY, (Reported) Entered as Reported by: OSWALDO RUGGIERO on 09/19/11 1052 Letrozole (Femara) 2.5 Mg Tablet, 1 EACH PO HS, (Reported) Entered as Reported by: OSWALDO RUGGIERO on 09/19/11 1052 Multivitamins (Multivitamins) 1 Each Capsule, 1 EACH PO DAILY, (Reported) Entered as Reported by: OSWALDO RUGGIERO on 09/19/11 1052 Nitrofurantoin Macrocrystal (Nitrofurantoin) 100 Mg Capsule, 100 MG PO BID Prescribed by: PAIGE RAMOS MD on 06/25/21 1440 Review of Systems Review of Systems Constitutional: no symptoms reported EENTM: No Symptoms Reported Respiratory: No Symptoms Reported Cardiovascular: No Symptoms Reported Gastrointestinal: No Symptoms Reported Genitourinary: No Symptoms Reported Musculoskeletal: muscle twitching Skin: no symptoms reported Psychiatric/Neurological: Paresthesia Endocrine: No Symptoms Reported Hematologic/Lymphatic: No Symptoms Reported Past Ivqaspv-Okubzg-Bhvpwl Hx Patient Social History Tobacco Use?: No Smoking Status: Never a Smoker Smokeless Tobacco Frequency: Never a User Use of E-Cig and/or Vaping dev: No Use of E-Cig and/or Vaping Amadeo: Never a User Substance use?: No Alcohol Use?: No Pt feels they are or have been: No Immunizations Up To Date COVID19 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: [employer] Source Seasonal Allergies Seasonal Allergies: No Past Medical History Surgeries: Yes (R mastectomy) Breast, Hysterectomy Respiratory: No Cardiac: No Neurological: No Reproductive Disorders: 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 oz. 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, no motor/sensory deficits, alert, normal mood/affect, oriented x 3, other (right upper extremity weakness resolved, and now it haS 5/5 strength) Progress/Results/Core Measures Results/Orders Lab Results Laboratory Tests Test 06/25/21 12:07 06/25/21 13:27 Range/Units White Blood Count 5.4 4.3-11.0 10^3/uL Red Blood Count 4.35 3.80-5.11 10^6/uL Hemoglobin 13.2 11.5-16.0 g/dL Hematocrit 41 35-52 % Mean Corpuscular Volume 94 80-99 fL Mean Corpuscular Hemoglobin 30 25-34 pg Mean Corpuscular Hemoglobin Concent 32 32-36 g/dL Red Cell Distribution Width 12.7 10.0-14.5 % Platelet Count 191 130-400 10^3/uL Mean Platelet Volume 10.0 9.0-12.2 fL Immature Granulocyte % (Auto) 1 % Neutrophils (%) (Auto) 62 42-75 % Lymphocytes (%) (Auto) 28 12-44 % Monocytes (%) (Auto) 7 0-12 % Eosinophils (%) (Auto) 2 0-10 % Basophils (%) (Auto) 1 0-10 % Neutrophils # (Auto) 3.3 1.8-7.8 10^3/uL Lymphocytes # (Auto) 1.5 1.0-4.0 10^3/uL Monocytes # (Auto) 0.4 0.0-1.0 10^3/uL Eosinophils # (Auto) 0.1 0.0-0.3 10^3/uL Basophils # (Auto) 0.0 0.0-0.1 10^3/uL Immature Granulocyte # (Auto) 0.1 0.0-0.1 10^3/uL Prothrombin Time 12.7 12.2-14.7 SEC INR Comment 0.9 0.8-1.4 Activated Partial Thromboplast Time 26 24-35 SEC D-Dimer 1.95 H 0.00-0.49 UG/ML Sodium Level 141 135-145 MMOL/L Potassium Level 4.3 3.6-5.0 MMOL/L Chloride Level 105 98-107 MMOL/L Carbon Dioxide Level 26 21-32 MMOL/L Anion Gap 10 5-14 MMOL/L Blood Urea Nitrogen 25 H 7-18 MG/DL Creatinine 1.12 0.60-1.30 MG/DL Estimat Glomerular Filtration Rate 51 BUN/Creatinine Ratio 22 Glucose Level 111 H 70-105 MG/DL Calcium Level 9.9 8.5-10.1 MG/DL Corrected Calcium 9.8 8.5-10.1 MG/DL Total Bilirubin 0.4 0.1-1.0 MG/DL Aspartate Amino Transf (AST/SGOT) 23 5-34 U/L Alanine Aminotransferase (ALT/SGPT) 22 0-55 U/L Alkaline Phosphatase 125 40-136 U/L Troponin I < 0.30 <0.30 NG/ML Total Protein 7.8 6.4-8.2 GM/DL Albumin 4.1 3.2-4.5 GM/DL Thyroid Stimulating Hormone (TSH) 2.28 0.35-4.94 UIU/ML Urine Color YELLOW Urine Clarity CLOUDY Urine pH 6.0 5-9 Urine Specific [place] 1.015 L 1.016-1.022 Urine Protein NEGATIVE NEGATIVE Urine Glucose (UA) NEGATIVE NEGATIVE Urine Ketones NEGATIVE NEGATIVE Urine Nitrite NEGATIVE NEGATIVE Urine Bilirubin NEGATIVE NEGATIVE Urine Urobilinogen 0.2 < = 1.0 MG/DL Urine Leukocyte Esterase 3+ H NEGATIVE Urine RBC (Auto) TRACE-I H NEGATIVE Urine RBC RARE /HPF Urine WBC >100 H /HPF Urine Squamous Epithelial Cells RARE /HPF Urine Crystals NONE /LPF Urine Bacteria FEW H /HPF Urine Casts NONE /LPF Urine Mucus NEGATIVE /LPF Urine Culture Indicated YES My Orders Orders - PAIGE RAMOS MD Ct Head Wo-R/O Stroke (06/25/21 12:13) Cbc With Automated Diff (06/25/21 12:38) Protime With Inr (06/25/21 12:38) Partial Thromboplastin Time (06/25/21 12:38) Comprehensive Metabolic Panel (06/25/21 12:38) Fibrin Degradation Products (06/25/21 12:38) Troponin I Fs (06/25/21 12:38) Ua Culture If Indicated (06/25/21 12:38) Chest 1 View Ap/Pa Only (06/25/21 12:38) Ekg Tracing (06/25/21 12:38) Accucheck Stat ONCE (06/25/21 12:38) Ed Iv/Invasive Line Start (06/25/21 12:38) Ed Iv/Invasive Line Start (06/25/21 12:38) Vital Signs Stroke Patient Q15M (06/25/21 12:38) O2 (06/25/21 12:38) Monitor-Rhythm Ecg Trace Only (06/25/21 12:38) Dysphagia Screening Tool (06/25/21 12:38) Thyroid Stimulating Hormone (06/25/21 12:39) Urine Culture (06/25/21 13:27) Vital Signs/I&O 06/25/21 06/25/21 12:01 14:50 Temp 36.8 Pulse 93 65 Resp 16 17 B/P (MAP) 150/75 (100) 127/68 Pulse Ox 99 O2 Delivery Room Air Room Air Blood Pressure Mean: 100 Progress Progress Note : Progress Note 1. POSSIBLE TIA: - SYmptoms completely resolved - CT HEAD - Stroke protocol for work-up -Since symptoms have resolved, gave patient an outpatient MRI order and therea fter to follow-up with PCP office. 2. UTI: - UA showed 3+ LE - Nitrofurantoin 100mg BID for 7 days - Adequate hydration Initial ECG Impression Date: Jun 25, 2021 Initial ECG Impression Time: 13:16 Initial ECG Rate: 76 Initial ECG Rhythm: Normal Sinus Initial ECG Impression: Nonspecific Changes Diagnostic Imaging Diagonstic Imaging: Xray, CT Comments NAME: ALLISON ECHAVARRIAREY Mona [facility] REC#: [id number] PT STATUS: [facility] ER : 1945 PHYSICIAN: PAIGE RAMOS MD ADMIT DATE: 06/25/21/ER FS Signed Date of Exam:06/25/21 CHEST 1 VIEW AP/PA ONLY HISTORY: Right upper extremity weakness, right hand numbness. TECHNIQUE: Frontal view of the chest. COMPARISON: None. FINDINGS: Lung volumes are normal. No consolidation is seen. There is no pleural effusion or pneumothorax. Surgical clips are seen in the right axilla. The cardiac silhouette is normal in size. IMPRESSION: No acute pulmonary abnormality. Dictated by: Dictated on workstation # [id number] Dict: 06/25/21 1303 Trans: 06/25/21 1701 JM [id number] Interpreted by: PHILIPP FLETCHER MD Electronically signed by: PHILIPP FLETCHER MD 06/25/21 1701 NAME: KINJAL ECHAVARRIA [employer] [facility] REC#: [id number] PT STATUS: [facility] ER : 1945 PHYSICIAN: PAIGE RAMOS MD ADMIT DATE: 06/25/21/ER FS Signed Date of Exam:06/25/21 CT HEAD WO-R/O STROKE CLINICAL INDICATION: Non-activation stroke. Right hand numbness. EXAM: Axial CT scan of the brain without IV contrast with coronal and sagittal reformatted images. Auto Exposure Controls were utilized during the CT exam to meet ALARA standards for radiation dose reduction. COMPARISON: None FINDINGS: There is no evidence of acute cerebral infarct, intracranial hemorrhage, or gross mass effect. The brain parenchymal volume appears appropriate for patient's age. There are multiple focal and patchy areas of low-attenuation white matter changes involving the white matter of both cerebral hemispheres and bilateral basal ganglia regions. There is normal andres-white matter distinction. There is no significant midline shift or herniation. There is no evidence of hydrocephalus. The basal cisterns are unremarkable. The skull, extracranial soft tissue, and orbits are unremarkable. There is mild mucosal thickening involving both maxillary sinuses and frontal sinus. There is cxkx-zw-twebdtks mucosal thickening involving the ethmoid sinus. Temporal bones show no significant abnormality. IMPRESSION: 1: There is no dense vessel sign seen. There is no definite CT evidence of interval acute cerebral infarction, intracranial hemorrhage, or mass seen. The diffuse patchy low attenuation changes throughout the brain parenchyma may possibly obscure more subtle findings. If there is clinical concern for acute cerebral infarction, MRI of the brain would better evaluate. 2: There are multiple focal and patchy areas of low-attenuation white matter changes involving both cerebral hemispheres and bilateral basal ganglia regions, which may be related to chronic ischemic changes/small infarcts. Results of this report were discussed with Dr. Paige Ramos via the telephone on 06/25/2021 at 1258 hours. Dictated by: Dictated on workstation # [id number] Dict: 06/25/21 1251 Reviewed: Discussed w/Radiologist Departure Impression Primary Impression: TIA (transient ischemic attack) Additional Impression: UTI (urinary tract infection) Qualified Codes: N39.0 - Urinary tract infection, site not specified Disposition: 01 HOME, SELF-CARE Condition: Stable Departure-Patient Inst. Referrals: GAL DUGGAN APRN (PCP) Primary Care Physician [facility] (Family) Primary Care Physician Patient Instructions: Transient Ischemic Attack (DC), Urinary Tract Infections in Adults Scripts Nitrofurantoin Macrocrystal (Nitrofurantoin) 100 Mg Capsule 100 MG PO BID for 7 Days, #14 CAP 0 Refills Prov: PAIGE RAMOS MD 06/25/21 PAIGE RAMOS MD Jun 25, 2021 13:38
[2021-06-25 13:40] LABS: BACTERIA,URINE FEW /HPF; RBC,URINE RARE /HPF; SQUAMOUS EPITHELIAL CELL,UR RARE /HPF; WBC,URINE >100 /HPF
[2021-06-25] MEDS ORDERED: NITR100C PO (14:40)
[2021-06-25 14:50] VITALS: BP 127/68
== END 2021-06-25 14:50 | disposition home or self-care (01) ==
LOC: EDUNIT# 12:01 → ER FS 12:02
DX: G45.9 Transient cerebral ischemic attack, unspecified (principal); N39.0 Urinary tract infection, site not specified
CPT/HCPCS: 36415; 70450; 71045; 80053; 81000; 84443; 84484; 85025; 85379; 85610; 85730; 87077; 87088; 87186; 93005; 93041

== ENCOUNTER → 2021-07-02 | Outpatient (CLI) | payer MEDICARE ==
[~2021-07-02] MED LIST changes: +NITR100C PO
--- NOTE | 2021-07-02 12:28 | Diagnostic Imaging Report ---
EXAMINATION: Left wrist radiographs, 2 views. COMPARISON: Left hand radiographs June 16, 2021. HISTORY: 75-year-old female, follow-up left wrist fracture. Left wrist pain. FINDINGS: There has been placement of overlying cast material. There is a mildly displaced distal radial metaphyseal fracture. There are likely persistent fracture lines present. There is no additional identified fracture. There is moderate to severe osteoarthritis of the first carpometacarpal joint. IMPRESSION: 1. Mildly displaced distal radial metaphyseal fracture without interval change in fracture alignment. There is likely a persistent visualized fracture line. 2. Placement of overlying cast material which obscures bone and trabecular detail. \ Dictated by: Dictated on workstation # [id number]
== END ==
LOC: RAD FS 10:07
PROVIDERS: ATTEND Nurse Practitioner
DX: S52.532D Colles' fracture of left radius, subsequent encounter for closed fracture with routine healing (principal)
CPT/HCPCS: 73100

== ENCOUNTER → 2021-07-09 | Outpatient (CLI) | payer MEDICARE ==
--- NOTE | 2021-07-09 11:04 | Diagnostic Imaging Report ---
PROCEDURE: MR imaging of the brain without contrast. TECHNIQUE: Multiplanar, multisequence MR imaging of the brain was performed without contrast. INDICATION: Right arm numbness. Evaluate for acute ischemia. COMPARISON: 06/25/2021. FINDINGS: No acute ischemia, mass, or hemorrhage. Scattered chronic microvascular disease is seen in the periventricular and subcortical white matter. The ventricles, cortical sulci, and basilar cisterns are symmetric and unremarkable. The sellar and suprasellar regions have a normal appearance. The brainstem and posterior fossa are unremarkable. Retained secretions are seen in the left ethmoid sinuses. The mastoid air cells demonstrate normal signal characteristics. Bilateral lens implants are noted. The globes and orbits are symmetric and unremarkable. The scalp and calvarium have a normal appearance. IMPRESSION: 1. No acute ischemia, mass, or hemorrhage. 2. Scattered chronic microvascular disease in the periventricular and subcortical white matter. Dictated by: Dictated on workstation # [id number]
== END ==
LOC: RAD 10:15
PROVIDERS: ATTEND Nurse Practitioner Family
DX: I67.89 Other cerebrovascular disease (principal)
CPT/HCPCS: 70551

== ENCOUNTER → 2021-07-19 | Outpatient (CLI) | payer MEDICARE ==
--- NOTE | 2021-07-19 09:18 | Diagnostic Imaging Report ---
INDICATION: Left wrist fracture follow-up AP and lateral views of the left wrist are obtained and compared to 07/02/2021. There is stable alignment of patient's distal radial comminuted fracture, with moderate callus formation compatible with ongoing healing. There are mild degenerative changes throughout the carpal bones. There is no new bony abnormality. IMPRESSION: Stable alignment with partial healing of distal radial comminuted fracture. Underlying degenerative changes. Dictated by: Dictated on workstation # [id number]
== END ==
LOC: RAD FS 08:55
PROVIDERS: ATTEND Nurse Practitioner
DX: S52.532D Colles' fracture of left radius, subsequent encounter for closed fracture with routine healing (principal); X58.XXXD Exposure to other specified factors, subsequent encounter
CPT/HCPCS: 73100